=== PATIENT | male | born 1960 | race African-American/Black ===

== ENCOUNTER 2016-09-17 01:00 | Emergency (ER) | payer BC, OTHER, SELFPAY | END 2016-09-17 02:00 | disposition home or self-care (01) | LOC: NAV ERS 01:00 | DX: G40.909 Epilepsy, unspecified, not intractable, without status epilepticus (principal); S01.512A Laceration without foreign body of oral cavity, initial encounter; I10 Essential (primary) hypertension; Z79.899 Other long term (current) drug therapy; X58.XXXA Exposure to other specified factors, initial encounter | CPT/HCPCS: 36416; 99284 ==

== ENCOUNTER 2016-12-25 11:42 | Outpatient (CLI) | payer BC ==
--- NOTE | 2016-12-26 14:49 | ULT ---
ULTRASOUND NECK SOFT TISSUE: HISTORY: Mass at the back of the neck for two years. COMPARISON: None. TECHNIQUE: Real-time arredondo-scale, and color evaluation of the soft tissues of the neck was performed by the tech nologist. No radiologist was present to evaluate this. FINDINGS: There is a hyperechoic to fat mass, which is somewhat ovoid and elongated, at the back of the neck, measuring 3.8 x 4 x 3 cm. There is a central hypoechoic area within this. No vascular area is seen . IMPRESSION: Avascular mass within the soft tissues of the neck which is hyperechoic to fat. MRI with and withou t contrast recommended. POS: [place]
== END 2016-12-25 11:43 | disposition home or self-care (01) ==
LOC: NAV ULT 11:42
PROVIDERS: ATTEND Nurse Practitioner Family
DX: R22.1 Localized swelling, mass and lump, neck (principal)
CPT/HCPCS: 76536